=== PATIENT | male | born 2005 | race Caucasian/White ===

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

== ENCOUNTER 2024-12-04 22:22 | Emergency (ER) | payer SELFPAY ==
[2024-12-04 23:49] LABS: Absolute Basophils 0.1 K/uL (0-0.5); Absolute Eosinophils 0.3 K/uL (0-0.5); Absolute Lymphocytes (CBC) 3.2 K/uL (0.7-4.9); Absolute Monocytes 0.7 K/uL (0.1-1.3); Absolute Neutrophil 5.2 K/uL (1.8-8.0); Basophils % 0.7 % (0-1.3); Eosinophils % 3.4 % (0-4.4); Hematocrit 45.7 % (39.6-49.0); Hemoglobin 15.8 g/dL (13.6-17.9); Lymphocytes % 33.4 % (15.3-44.8); MCHC 34.7 g/dL (32.0-36.0); MCV 92.1 fL (80-100); MPV 8.6 fL (7.6-11.3); Monocytes % 7.7 % (3.3-12.3); Neutrophils % 54.8 % (41.7-73.7); Platelets 370 thou/uL (152-406); RBC Red Blood Cell Count 4.96 M/uL (4.33-5.43); Red Cell Distribution Width 13.2 % (12.1-15.2)
[2024-12-05 00:12] LABS: Anion Gap 7.8 mEq/L (5.0-15.0); Thyroid Stimulating Hormone 1.73 uIU/mL (0.358-3.740); Troponin High Sensitivity 3.4 pg/mL (<58.9)
[2024-12-05 00:13] LABS: Potassium 3.8 mEq/L (3.5-5.1)
--- NOTE | 2024-12-05 00:25 | ER ---
Nurse's Notes [facility] Name: Godfrey Bardales Jr Age: 19 yrs Sex: Male : 2005 Arrival Date: 12/04/2024 Time: 22:22 Bed 19 Private MD: Diagnosis: Chest pain, unspecified Presentation: 12/04 22:45 Chief complaint: Patient states: LEFT SIDED CHEST PAIN FOR 2 DAYS, PALPATIONS. br2 Coronavirus screen: Client denies travel out of the [place] in the last 14 days. Ebola Screen: Patient denies exposure to infectious person. Initial Sepsis Screen: Does the patient meet any 2 criteria? No. Patient's initial sepsis screen is negative. Does the patient have a suspected source of infection? No. Patient's initial sepsis screen is negative. Risk Assessment: Do you want to hurt yourself or someone else? Patient reports no desire to harm self or others. Onset of symptoms was December 02, 2024. 22:45 Method Of Arrival: Ambulatory br2 22:45 Acuity: DAMON 3 br2 Historical: - Allergies: 22:48 Codeine; br2 - PMHx: 22:48 None; br2 - PSHx: 22:48 None; br2 - Immunization history:: Adult Immunizations not up to date. - Infectious Disease History:: Denies. - Social history:: Smoking status: Reported history of juuling and/or vaping. Screenin:25 [facility] ED Fall Risk Assessment (Adult) History of falling in the last 3 months, me1 including since admission No falls in past 3 months (0 pts) Confusion or Disorientation No (0 pts) Intoxicated or Sedated No (0 pts) Impaired Gait No (0 pts) Mobility Assist Device Used No (0 pt) Altered Elimination No (0 pt) Score/Fall Risk Level 0 - 2 = Low Risk Maintained a safe environment, Provided non-skid footwear, Hourly rounding (assess needs \T\ fall precautionary measures) done. Abuse screen: Denies threats or abuse. Nutritional screening: No deficits noted. Tuberculosis screening: No symptoms or risk factors identified. Assessment: 23:25 General: Appears in no apparent distress. well groomed, well developed, well nourished, me1 Behavior is calm, cooperative, appropriate for age, Reports LEFT SIDED CHEST PAIN FOR 2 DAYS, PALPATIONS. Pain: Complains of pain in anterior aspect of left upper chest Pain does not radiate. Pain currently is 4 out of 10 on a pain scale. at worst was 8 out of 10 on a pain scale. Quality of pain is described as sharp, Pain began 2-3 days ago. Is intermittent. Neuro: Level of Consciousness is awake, alert, obeys commands, Oriented to person, place, time, situation, Appropriate for age. Cardiovascular: Patient's skin is warm and dry. Cardiovascular: Reports chest pain. Respiratory: Airway is patent Respiratory effort is even, unlabored, Respiratory pattern is regular, symmetrical. GI: No signs and/or symptoms were reported involving the gastrointestinal system. : No signs and/or symptoms were reported regarding the genitourinary system. EENT: No signs and/or symptoms were reported regarding the EENT system. Derm: Skin is intact, is healthy with good turgor, Skin is pink, warm \T\ dry. Musculoskeletal: No signs and/or symptoms reported regarding the musculoskeletal system. 12/05 00:10 Reassessment: Patient is alert, oriented x 3, equal unlabored respirations, skin rg5 warm/dry/pink. Vital Signs: 12/04 22:45 BP 124 / 87; Pulse 96; Resp 18; Pulse Ox 100% ; Weight 63.5 kg; Height 5 ft. 5 in. ; br2 Pain 3/10; 23:00 BP 120 / 79; Pulse 106; Resp 16; Pulse Ox 100% ; me1 12/05 00:09 BP 101 / 56; Pulse 90; Resp 17; Pulse Ox 98% on R/A; rg5 12/04 22:45 Body Mass Index 23.30 (63.50 kg, 165.1 cm) br2 12/04 22:45 Pain Scale: Adult br2 ED Course: 12/04 22:29 Patient arrived in ED. ec2 22:29 [facility]rier [facility]-C [facility] kb 22:29 Rashid Matos MD is Attending Physician. kb 22:48 Triage completed. br2 22:58 Juanita Bernabe, ABDIFATAH is Primary Nurse. me1 23:02 XRAY Chest (1 view) In Process Unspecified. EDMS 23:11 Initial lab(s) drawn, by me, sent to lab. Inserted saline lock: 22 gauge in right me1 antecubital area, using aseptic technique. 23:11 Basic Metabolic Panel Sent. me1 23:12 CBC with Diff Sent. me1 23:12 Troponin HS Sent. me1 23:12 TSH Sent. me1 23:25 No provider procedures requiring assistance completed. Patient maintains SpO2 me1 saturation greater than 95% on room air. 23:25 Patient has correct armband on for positive identification. Bed in low position. Call me1 light in reach. Side rails up X2. Provided Education on: POC. Verbalized understanding.. Client placed on continuous cardiac and pulse oximetry monitoring. NIBP monitoring applied. monitor car operator on. Pulse ox on. NIBP on. 23:30 Arm band placed on Patient placed in an exam room. me1 23:54 UDS Sent. me1 23:54 Urine collected: clean catch specimen, clear. me1 12/05 00:33 IV discontinued, bleeding controlled, No redness/swelling at site. Pressure dressing rg5 applied. Administered Medications: No medications were administered Medication: 12/04 23:25 VIS not applicable for this client. me1 Outcome: 12/05 00:24 Discharge ordered by . kb 00:33 Discharged to home ambulatory, rg5 00:33 Condition: stable 00:33 Discharge instructions given to patient, Instructed on discharge instructions, Demonstrated understanding of instructions, 00:34 Patient left the ED. rg5 Signatures: Dispatcher [employer] EDAmira Donnelly, MAORI LIAISON ADVISER-C MAORI LIAISON ADVISER-CkJuanita Cornell, RN RN me1 Rashid Matos MD MD ec2 Lowell Cooper RN RN rg5 Cassie Barajas RN RN br2 Corrections: (The following items were deleted from the chart) 12/04 22:54 22:45 Chief complaint: Patient states: LEFT SIDED CHEST PAIN FOR 2 DAYS, PALPATIONS, br2me1 23:25 22:45 Chief complaint: Patient states: LEFT SIDED CHEST PAIN FOR 2 DAYS, PALPATIONS, me1me1 12/05 00:02 12/04 21:00 BP 120 / 79; Pulse 106bpm; Resp 16bpm; Pulse Ox 100%; me1 me1
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
[2024-12-05 00:27] LABS: Barbiturates NEGATIVE (NEGATIVE); Benzodiazepines NEGATIVE (NEGATIVE); Cocaine POSITIVE (NEGATIVE); METHAMPHETAM POSITIVE (NEGATIVE); Methadone NEGATIVE (NEGATIVE); Opiates NEGATIVE (NEGATIVE); Phencyclidine NEGATIVE (NEGATIVE); THC Cannibis NEGATIVE (NEGATIVE)
--- NOTE | 2024-12-05 06:13 | RAD REPORT ---
EXAM: XR Chest, 1 View CLINICAL HISTORY: CHEST PAIN TECHNIQUE: Frontal view of the chest. COMPARISON: No relevant prior studies available. FINDINGS: Lungs: Unremarkable. No consolidation. Pleural space: Unremarkable. No pneumothorax. Heart: Unremarkable. No cardiomegaly. Mediastinum: Unremarkable. Normal mediastinal contour. Bones/joints: Unremarkable. No acute fracture. IMPRESSION: No acute disease. Electronically signed by: aRheel Pillai MD 12/05/2024 12:02 AM [facility] Due to temporary technical issues with the PACS/ZolkC reporting system, reports are being fabio d by the in-house radiologist without review as a courtesy to ensure prompt reporting the interpreting radiologist is fully responsible for the content of the report. Transcribed Date/Time: 12/05/2024 6:13 AM
[2024-12-06 16:23] VITALS: BP 101/56; O2SAT 98
--- NOTE | 2024-12-08 12:09 | EKG ---
Test Date: 2024-12-04 Test Time: 23:20:39 Branch Customer Service Representative: MEASUREMENT RESULTS: Intervals: Rate: 99 MA: 124 QRSD: 76 QT: 328 QTc: 420 [place]: P: 75 MA: 124 QRS: 79 T: 67 INTERPRETIVE STATEMENTS: Normal sinus rhythm Normal ECG No previous ECG available for comparison Electronically Signed On 12-08-24 12:07:26 BOOM CRANE OPERATOR by Yimi Gonsales
== END 2024-12-05 00:34 | disposition home or self-care (01) ==
LOC: ER 22:22
DX: R07.9 Chest pain, unspecified (principal); Z11.52 Encounter for screening for COVID-19
CPT/HCPCS: 36415; 71045; 80048; 80307; 84443; 84484; 85025; 93005; 99284